=== PATIENT | male | born 1990 | race African-American/Black ===

== ENCOUNTER 2021-01-08 06:38 | Inpatient (IN) | payer OTHER ==
[2021-01-08 07:00] VITALS: BMI 21.1
[2021-01-08] MEDS ORDERED: ACETAMINOPHEN 1000 MG/100 ML VIAL (NON FORMULARY) IVPB ONE (08:16)
[2021-01-08] MEDS ORDERED: ACETAMINOPHEN INJECTION 100 ML IVPB ONE (08:24)
[2021-01-08 10:24] LABS: BASO % 0.8 % (0-2.0); EOS % 0.1 % (0-4.5); HEMATOCRIT 41.9 % (35.4-49); HEMOGLOBIN 14.4 GM/dL (11.7-16.9); LYMPH % 20.6 % (8-40); MCH 30.6 pg (25.7-33.7); MCHC 34.4 g/dl (32.0-35.9); MEAN PLT VOLUME 10.3 fl (7.5-11.1); MONO % 17.4 % (3.8-10.2); NEUT % 61.1 % (42.8-82.8); PLATELET COUNT 157 K/MM3 (134-434); RDW 12.5 % (11.9-15.9); WHITE BLOOD COUNT 4.6 K/mm3 (4.0-10.0)
[2021-01-08 10:45] LABS: CHLORIDE 104 mmol/L (98-107); POTASSIUM 3.9 mmol/L (3.5-5.1); SODIUM 136 mmol/L (136-145)
[2021-01-08 10:47] LABS: ANION GAP 6 MMOL/L (8-16); CALCIUM 8.8 mg/dL (8.5-10.1); CO2 26 mmol/L (21-32); GLUCOSE,RANDOM 99 mg/dL (74-106)
[2021-01-08 10:48] LABS: ALBUMIN 4.1 g/dl (3.4-5.0)
[2021-01-08 10:51] LABS: SGOT/AST 15 U/L (15-37); SGPT/ALT 15 U/L (13-61)
[2021-01-08 10:52] LABS: BILIRUBIN,TOTAL 0.6 mg/dL (0.2-1); TOT PROT 7.1 g/dl (6.4-8.2)
[2021-01-08 10:53] LABS: ALK PHOS 64 U/L (45-117)
[2021-01-08] MEDS ORDERED: DEXAMETHASONE SOD PHOSPHATE 10 MG/1 ML VIAL IVPUSH ONE (11:47)
[2021-01-08] MEDS ORDERED: DEXAMETHASONE SOD PHOSPHATE 10 MG/1 ML VIAL ONE (12:35)
[2021-01-08] MEDS ORDERED: ONDANSETRON 4 MG/2 ML VIAL IVPUSH PRN (12:53)
[2021-01-08] MEDS ORDERED: ACETAMINOPHEN 325 MG TABLET (FP) PO PRN ×2 (12:54→12:55)
[2021-01-08] MEDS ORDERED: ENOXAPARIN NA (PORCINE) 40 MG/0.4 ML DISP.SYRIN SQ SCH (13:30)
[2021-01-08] MEDS ORDERED: ENOXAPARIN NA (PORCINE) 40 MG/0.4 ML DISP.SYRIN SQ ONE (14:47)
[2021-01-08 15:20] VITALS: TEMP 98.6
[2021-01-08 21:54] VITALS: BP 155/96; PULSE 79
== END 2021-01-08 22:05 | disposition left against medical advice (07) | DRG 137 ==
LOC: JER 06:38 → JERBED 08:30
PROVIDERS: ADMIT Internal Medicine; ATTEND Internal Medicine
DX: U07.1 COVID-19 (principal); R50.9 Fever, unspecified; R09.02 Hypoxemia; R00.1 Bradycardia, unspecified; R51.9 Headache, unspecified; I44.0 Atrioventricular block, first degree
CPT/HCPCS: 36415; 71045-TC-FY; 80053; 82550; 82728; 83615; 84484; 85025; 85379; 86140; 87070; 87804; 87880; 93005; 93010; 99285-25; C9803; J0131; J1100; U0003

== ENCOUNTER 2021-11-05 09:21 | Emergency (ER) | payer OTHER ==
[2021-11-05 09:40] VITALS: BP 116/77; PULSE 69; TEMP 97.8; BMI 21.4
[2021-11-05] MEDS ORDERED: DEXAMETHASONE LIQUID 0.5 MG/5 ML PO ONE (10:19)
[2021-11-05] MEDS ORDERED: DEXAMETHASONE SOD PHOSPHATE 10 MG/1 ML VIAL ONE (10:21)
[2021-11-06 10:07] LABS: SARS-CoV-2 NAA Not Detected (Not Detected)
== END 2021-11-05 11:24 | disposition home or self-care (01) ==
LOC: JER 09:21
DX: R05.1 Acute cough (principal); R09.81 Nasal congestion; J06.9 Acute upper respiratory infection, unspecified; J03.90 Acute tonsillitis, unspecified
CPT/HCPCS: 87070; 87077; 87804; 99283-25; C9803; U0003; U0005